=== PATIENT | male | born 1970 | race Caucasian/White ===

== ENCOUNTER 2017-07-25 13:23 | Emergency (ER) | payer OTHER ==
[2017-07-25 13:48] VITALS: O2SAT 97
[2017-07-25] MEDS ORDERED: Calamine-Zinc Oxide Lotion (120 ml) TOP STA (14:18)
[2017-07-25] MEDS ORDERED: Dexamethasone 4 mg/1 ml IM STA (14:18)
--- NOTE | 2017-07-25 14:41 | C.PDOC ---
History Of Present Illness 47 yr old male presents to the ER for evaluation of itchy areas to the bilateral forearms for the past 3-4 days. Patient thinks he is having allergic reaction to poison abi. Patient states he was working in his garden and believes he might of touched it by mistake. States the area is itchy, warm and mild swollen. Denies fever, chills, chest pain, SOB, wheezing, mouth swelling, throat swelling, nausea, vomiting, weakness or numbness. Time Seen by Provider: 07/25/17 13:52 Chief Complaint (Nursing): Abnormal Skin Integrity History Per: Patient History/Exam Limitations: no limitations Onset/Duration Of Symptoms: Days (3-4) Current Symptoms Are (Timing): Still Present Past Medical History Reviewed: Historical Data, Nursing Documentation, Vital Signs Vital Signs: Last Vital Signs Temp 97.7 F 07/25/17 13:45 Pulse 62 07/25/17 13:45 Resp 19 07/25/17 13:45 BP 151/84 H 07/25/17 13:45 Pulse Ox 97 07/25/17 14:42 Family History: States: No Known Family Hx - Social History Hx Alcohol Use: No Hx Substance Use: No - Immunization History Hx Tetanus Toxoid Vaccination: No Hx Influenza Vaccination: Yes (2017) Hx Pneumococcal Vaccination: No Review Of Systems Except As Marked, All Systems Reviewed And Found Negative. Constitutional: Negative for: Fever, Chills ENT: Negative for: Mouth Swelling, Throat Swelling Cardiovascular: Negative for: Chest Pain Respiratory: Negative for: Shortness of Breath, Wheezing Gastrointestinal: Negative for: Nausea, Vomiting Skin: Positive for: Other (+ itchy areas to bilateral forearms) Neurological: Negative for: Weakness, Numbness Physical Exam - Physical Exam Appears: Non-toxic, No Acute Distress Skin: Warm, Dry, Other (+ areas of clear vesicles on erythematous base on bilateral forearms, vesicles are ozzing) Eye(s): bilateral: Normal Inspection, PERRL, EOMI Oral Mucosa: Moist Tongue: Normal Appearing, No Swelling Lips: Normal Appearing, No Swelling Throat: Normal, No Erythema, No Exudate Cardiovascular: Rhythm Regular, No Murmur Respiratory: Normal Breath Sounds, No Rales, No Rhonchi, No Stridor, No Wheezing Extremity: Normal ROM, No Swelling Neurological/Psych: Oriented x3, Normal Speech ED Course And Treatment O2 Sat by Pulse Oximetry: 97 (RA) Pulse Ox Interpretation: Normal Progress Note: PLAN: Calamine TOP, Benadryl PO, Decadron IM & Reeval. Disposition Counseled Patient/Family Regarding: Studies Performed, Diagnosis, Need For Followup, Rx Given - Disposition Referrals: at [facility] [Outside] Disposition: HOME/ ROUTINE Disposition Time: 14:45 Condition: STABLE Prescriptions: DiphenhydrAMINE [Benadryl] 25 mg PO Q6 PRN #20 cap PRN Reason: Itching / Pruritus Pramoxine HCl/Calamine [Calagesic Lotion] 1 appl TP BID #1 lotion predniSONE [predniSONE Tab] 40 mg PO DAILY #8 tab Instructions: Poison Aib (ED) Forms: [employer] (Arabic) Print Language: MOROCCAN - Clinical Impression Clinical Impression: Contact dermatitis, Contact dermatitis due to poison abi - Scribe Statement The provider has reviewed the documentation as recorded by the Bertram Miller Provider Attestation: All medical record entries made by the Bertram were at my direction and personally dictated by me. I have reviewed the chart and agree that the record accurately reflects my personal performance of the history, physical exam, medical decision making, and the department course for this patient. I have also personally directed, reviewed, and agree with the discharge instructions and disposition.
[2017-07-25] MEDS ORDERED: Dexamethasone 4 mg/1 ml ONE (14:46)
[2017-07-25 16:02] VITALS: BP 119/83; PULSE 54; RESP 18; TEMP 98
== END 2017-07-25 15:00 | disposition home or self-care (01) ==
LOC: C.ER 13:23
DX: L23.7 Allergic contact dermatitis due to plants, except food (principal)